=== PATIENT | female | born 1990 | race Caucasian/White ===

== ENCOUNTER 2024-05-27 11:47 | Emergency (ER) | payer SELFPAY ==
[~2024-05-27] VITALS: Ht 162.6 cm; Wt 90.9 kg
[2024-05-27] MEDS ORDERED: TOPCARE OMEPRAZ20 MG PO (11:59)
[2024-05-27 12:22] LABS: PH-URINE 5.5 (5.0 - 8.0); URINE APPEARANCE CLEAR (CLEAR); URINE BILIRUBIN NEGATIVE (NEGATIVE); URINE BLOOD NEGATIVE (NEGATIVE); URINE COLOR YELLOW (YELLOW); URINE GLUCOSE NEGATIVE (NEGATIVE); URINE KETONE TRACE (NEGATIVE); URINE NITRATE NEGATIVE (NEGATIVE); URINE PROTEIN(semi-quant) NEGATIVE (NEGATIVE); URINE WBC 0-1 /hpf (0-3)
[2024-05-27 12:23] LABS: URINE MUCUS PRESENT (NOT PRESENT)
[2024-05-27 12:32] LABS: URINE LEUKOCYTE ESTERASE NEGATIVE (NEGATIVE)
[2024-05-27 12:45] LABS: BASO # 0.04 K/mm3 (0.02-0.10); EOS # 0.13 K/mm3 (0.04-0.40); EOS % 1.5 % (1.0-5.0); HEMATOCRIT 45.9 % (37.0-47.0); HEMOGLOBIN 15.4 g/dL (12.5-16.0); LYMPH# 2.17 K/mm3 (1.50-4.00); MEAN CELL VOLUME 97 fl (78-100); MEAN CORPUSCULAR HEMOGLOBIN 33 pg (27-31); MEAN CORPUSCULAR HGB CONC 34 g/dL (33-37); MONO # 0.61 K/mm3 (0.20-0.80); NEU # 5.78 K/mm3 (1.40-6.50); PLATELET COUNT 292 K/mm3 (130-400); RED BLOOD COUNT 4.74 M/mm3 (4.10-5.30); RED CELL DISTRIBUTION WIDTH 11.7 % (11.5-14.5); WHITE BLOOD COUNT 8.7 K/mm3 (4.8-10.8)
[2024-05-27 12:53] LABS: ALBUMIN 4.6 g/dL (3.5-5.0)
[2024-05-27 12:54] LABS: CALCIUM 9.6 mg/dL (8.3-10.5)
[2024-05-27 12:56] LABS: TOTAL PROTEIN 7.8 g/dL (6.4-8.3)
[2024-05-27 12:57] LABS: TOTAL BILIRUBIN 0.6 mg/dL (0.2-1.2)
[2024-05-27] MEDS ORDERED: PROPRANOLOL HCL40 M2 PO (13:27)
[2024-05-27 13:35] VITALS: BP 135/97
== END 2024-05-27 13:35 | disposition home or self-care (01) ==
LOC: ED 11:47
PROVIDERS: Physician Assistant
DX: I10 Essential (primary) hypertension (principal); F41.9 Anxiety disorder, unspecified